=== PATIENT | male | born 1960 | race Caucasian/White ===

== ENCOUNTER → 2017-02-03 | Outpatient (CLI) | payer OTHER, BC | LOC: NUC 10:06 | DX: M81.8 Other osteoporosis without current pathological fracture (principal); M85.80 Other specified disorders of bone density and structure, unspecified site ==

== ENCOUNTER → 2019-02-02 | Outpatient (CLI) | payer OTHER, MEDICARE ==
[~2019-02-02] MED LIST: ACYCLOVIR 400400 MG PO; ALLEGRA ALLERG180 MG PO; B COMPLEX1 EACH PO; BONIVA150 MG PO; CARBIDOPA-LEVO1 EAC7 PO; CELEXA40 MG PO; CLORAZEPATE D3.75 M1 PO; COD LIVER OIL1 EACH PO; DETROL LA4 MG PO; FLONASE 0.05%50 MCG NASAL; FLOVENT HFA 4444 MCG INH; HYDROCODONE-AP1 EAC6 PO; KALETRA 200-501 EACH PO; LUNESTA3 MG PO; MULTIVITAMINS PO; NORCO 5-325 TA1 EACH PO; OCUVITE TABLET1 EAC1 PO; PEPCID40 MG PO; PRESERVISION T1 EACH PO; PROAIR HFA8.5 GM INH; REQUIP3 MG PO; SEROQUEL 50 MG50 MG PO; TRANXENE T-TAB7.5 MG PO; TRUVADA 200 MG1 EACH PO; VIACTIV SOFT C1 EACH PO; VITAMIN D35000 UNIT PO; [UNRECOGNIZED DRUG - OTHER] PO
== END ==
LOC: NUC 09:11
DX: M81.8 Other osteoporosis without current pathological fracture (principal); B20 Human immunodeficiency virus [HIV] disease